=== PATIENT | male | born 1990 | race Caucasian/White ===

== ENCOUNTER 2021-11-30 09:53 | Inpatient (IN) ==
[2021-11-30 10:33] LABS: Basophils # 0.1 K/mcL (0.0-0.2); Eosinophils # 0.3 K/mcL (0.0-0.6); Eosinophils % 5.3 %; Hemoglobin 13.3 g/dL (12.9-16.9); Immature Granulocytes % 0.2 % (0-4); Lymphocytes # 1.4 K/mcL (0.6-4.6); Lymphocytes % 29.2 %; Mean Corpuscular HGB Conc 33.3 g/dL (31.6-35.5); Mean Corpuscular Hemoglobin 31.6 pg (28.0-33.3); Monocytes # 0.6 K/mcL (0.0-1.3); Monocytes % 12.9 %; Neutrophils # 2.5 K/mcL (1.6-8.9); Platelet Count 210 K/mcL (140-400); Red Blood Count 4.21 M/mcL (4.19-5.50); Red Cell Distribution Width 12.3 % (11.5-14.5); Segmented Neutrophils % 51.4 %; White Blood Count 4.9 K/mcL (4.3-11.1)
[2021-11-30 10:53] LABS: Calcium 8.5 mg/dL (8.6-10.3); Potassium 4.1 mEq/L (3.5-5.1)
[2021-11-30] MEDS ORDERED: 0.9 % Sodium Chloride 1,000 ML IV ONE (11:15)
[2021-11-30 12:23] LABS: Influenza A PCR Negative (Negative); Influenza B PCR Negative (Negative); Resp. Syncytial Virus PCR Negative (Negative)
[2021-11-30 13:09] LABS: SARS-CoV-2 by PCR (In House) Negative (Negative)
[2021-11-30] MEDS ORDERED: Melatonin 3 MG TABLET PO PRN (14:19)
[2021-11-30] MEDS ORDERED: Naloxone 0.4 MG/ML INJ IVP PRN (14:19)
[2021-11-30] MEDS ORDERED: Ondansetron 4 MG/2 ML VIAL IVP PRN (14:19)
[2021-11-30] MEDS ORDERED: Ringers Solution, Lactated 1,000 ML IVC SCH (14:30)
[2021-11-30] MEDS ORDERED: Azithromycin 500 MG in 0.9 % Sodium Chloride 250 ML IVPB ONE (15:00)
[2021-11-30] MEDS: 0.9 % Sodium Chloride 1,000 ML IVC SCH (15:13)
[2021-11-30] MEDS: cefTRIAXone 1,000 MG in 0.9 % Sodium Chloride Mini Bag 100 ML IVPB SCH (15:14)
[2021-11-30 15:37] LABS: INR 1.3; Prothrombin Time 14.3 Seconds (9.4-12.1)
[2021-11-30 15:49] LABS: Amphetamine Screen,Urine Negative ng/mL (Cutoff=1000); Barbiturate Screen,Urine Negative ng/mL (Cutoff=200); Benzodiazepines Screen,Urine Negative ng/mL (Cutoff=200); Cannabinoid Screen,Urine Negative ng/mL (Cutoff = 50); Cocaine Screen,Urine Negative ng/mL (Cutoff= 300); Opiate Screen,Urine Negative ng/mL (Cutoff=300); Phencyclidine Screen,Urine Negative ng/mL (Cutoff=25)
[2021-11-30 15:53] LABS: Bilirubin,Urine Negative (Negative); Blood,Urine Large (Negative); Clarity,Urine Clear (Clear); Color,Urine Yellow (Yellow); Glucose,Urine (UA) Normal (Normal); Ketones,Urine Negative (Negative); Leukocyte Esterase,Urine Negative (Negative); Mucus,Urine Few per lpf (None-Few); Nitrite,Urine Negative (Negative); Protein,Urine >=300 mg/dL (Neg-Trace); RBC,Urine 15-30 per hpf (0-3); Specific Gravity,Urine 1.026 (1.010-1.025); Squamous Epithelial Cell,Urine Few per hpf (None-Few); Urobilinogen,Urine Normal (Normal)
[2021-11-30 15:58] LABS: Adenovirus Not Detected (Not Detect); Bordetella Pertussis Not Detected (Not Detect); Chlamydophila pneumoniae Not Detected (Not Detect); Coronavirus 229E Not Detected (Not Detect); Coronavirus HKU1 Not Detected (Not Detect); Coronavirus NL63 Not Detected (Not Detect); Coronavirus OC43 Not Detected (Not Detect); Human Metapneumovirus Not Detected (Not Detect); Human Rhinovirus/Enterovirus Not Detected (Not Detect); Influenza A Subtype 2009 H1 Not Detected (Not Detect); Influenza B Not Detected (Not Detect); Mycoplasma pneumoniae Not Detected (Not Detect); Parainfluenza Virus 1 Not Detected (Not Detect); Parainfluenza Virus 2 Not Detected (Not Detect); Parainfluenza Virus 3 Not Detected (Not Detect); Parainfluenza Virus 4 Not Detected (Not Detect); Respiratory Syncytial Virus Not Detected (Not Detect); SARS-CoV-2 Not Detected (Not Detect)
[2021-11-30] MEDS: Nicotine 7 MG PATCH.TD24 TD PRN (16:47)
[2021-11-30] MEDS: Benzonatate 100 MG CAPSULE PO PRN (16:47)
[2021-11-30] MEDS ORDERED: GuaiFENesin Liq 200 MG/10 ML UDC PO PRN (20:21)
[2021-12-01] MEDS: 0.9 % Sodium Chloride 1,000 ML IVC SCH (02:59)
[2021-12-01 06:07] LABS: Basophils # 0.1 K/mcL (0.0-0.2); Basophils % 0.9 %; Eosinophils # 0.2 K/mcL (0.0-0.6); Eosinophils % 3.2 %; Hematocrit 34.8 % (37.5-50.1); Immature Granulocytes % 0.2 % (0-4); Lymphocytes # 1.5 K/mcL (0.6-4.6); Lymphocytes % 25.6 %; Mean Corpuscular HGB Conc 33.3 g/dL (31.6-35.5); Mean Corpuscular Hemoglobin 31.7 pg (28.0-33.3); Mean Corpuscular Volume 95.1 fL (83.0-100.0); Mean Platelet Volume 10.2 fL (9.4-12.4); Monocytes # 0.7 K/mcL (0.0-1.3); Monocytes % 12.2 %; Neutrophils # 3.3 K/mcL (1.6-8.9); Platelet Count 207 K/mcL (140-400); Red Blood Count 3.66 M/mcL (4.19-5.50); Red Cell Distribution Width 12.4 % (11.5-14.5); Segmented Neutrophils % 57.9 %; White Blood Count 5.7 K/mcL (4.3-11.1)
[2021-12-01 06:08] LABS: Hemoglobin 11.6 g/dL (12.9-16.9)
[2021-12-01 06:14] LABS: INR 1.4; Prothrombin Time 15.1 Seconds (9.4-12.1)
[2021-12-01 06:28] LABS: Calcium 7.7 mg/dL (8.6-10.3); Magnesium 2.2 mg/dL (1.6-2.6); Phosphorous 3.3 mg/dL (2.7-4.5)
[2021-12-01] MEDS: Acetaminophen 325 MG TABLET PO PRN (07:13)
[2021-12-01 13:19] LABS: Albumin 3.5 g/dL (3.5-5.7); Albumin/Globulin Ratio 0.9 (1.1-2.2); Bilirubin,Direct 0.2 mg/dL (0.0-0.2); Bilirubin,Indirect 0.5 mg/dL (0.0-1.0); Bilirubin,Total 0.7 mg/dL (0.3-1.0); Globulin 3.9 g/dL (2.4-3.5); Total Protein 7.4 g/dL (6.4-8.9)
[2021-12-01 13:22] LABS: Complement C3 < 15 mg/dL (87-200)
[2021-12-01] MEDS: cefTRIAXone 1,000 MG in 0.9 % Sodium Chloride Mini Bag 100 ML IVPB SCH (14:15)
[2021-12-01 18:52] LABS: Protein/Creatinine Ratio,Urine 1.14 mg/mg (0.00-0.20); Sodium, Urine 14.1 mEq/L
[2021-12-02 02:02] LABS: Hematocrit 34.9 % (37.5-50.1); Hemoglobin 11.8 g/dL (12.9-16.9); Mean Corpuscular HGB Conc 33.8 g/dL (31.6-35.5); Mean Corpuscular Hemoglobin 31.9 pg (28.0-33.3); Mean Corpuscular Volume 94.3 fL (83.0-100.0); Mean Platelet Volume 10.4 fL (9.4-12.4); Platelet Count 214 K/mcL (140-400); Red Cell Distribution Width 12.1 % (11.5-14.5); White Blood Count 6.7 K/mcL (4.3-11.1)
[2021-12-02 02:24] LABS: Albumin 3.1 g/dL (3.5-5.7); Albumin/Globulin Ratio 0.9 (1.1-2.2); Bilirubin,Direct 0.2 mg/dL (0.0-0.2); Bilirubin,Indirect 0.4 mg/dL (0.0-1.0); Bilirubin,Total 0.6 mg/dL (0.3-1.0); Globulin 3.5 g/dL (2.4-3.5); Potassium 4.8 mEq/L (3.5-5.1); Total Protein 6.6 g/dL (6.4-8.9)
[2021-12-02] MEDS: amLODIPine 5 MG TABLET PO SCH (07:51)
[2021-12-02] MEDS: Acetaminophen 325 MG TABLET PO PRN (07:51)
[2021-12-02] MEDS: Nicotine 7 MG PATCH.TD24 TD PRN (07:51)
[2021-12-02 14:29] LABS: Uric Acid 10.8 mg/dL (2.3-7.6)
[2021-12-02] MEDS: cefTRIAXone 1,000 MG in 0.9 % Sodium Chloride Mini Bag 100 ML IVPB SCH (14:34)
[2021-12-02] MEDS: carvediloL 6.25 MG TABLET PO SCH (16:24)
[2021-12-03 01:48] LABS: Basophils % 0.7 %; Eosinophils # 0.3 K/mcL (0.0-0.6); Eosinophils % 4.9 %; Hematocrit 34.4 % (37.5-50.1); Hemoglobin 11.5 g/dL (12.9-16.9); Immature Granulocytes % 0.2 % (0-4); Lymphocytes # 1.6 K/mcL (0.6-4.6); Mean Corpuscular HGB Conc 33.4 g/dL (31.6-35.5); Mean Corpuscular Hemoglobin 31.5 pg (28.0-33.3); Mean Corpuscular Volume 94.2 fL (83.0-100.0); Mean Platelet Volume 9.9 fL (9.4-12.4); Monocytes # 0.7 K/mcL (0.0-1.3); Monocytes % 12.6 %; Neutrophils # 3.1 K/mcL (1.6-8.9); Platelet Count 227 K/mcL (140-400); Red Blood Count 3.65 M/mcL (4.19-5.50); Red Cell Distribution Width 12.2 % (11.5-14.5); Segmented Neutrophils % 53.6 %; White Blood Count 5.9 K/mcL (4.3-11.1)
[2021-12-03 02:04] LABS: Albumin 3.1 g/dL (3.5-5.7); Albumin/Globulin Ratio 0.9 (1.1-2.2); Bilirubin,Total 0.6 mg/dL (0.3-1.0); Calcium 8.4 mg/dL (8.6-10.3); Globulin 3.5 g/dL (2.4-3.5); Potassium 4.7 mEq/L (3.5-5.1); Total Protein 6.6 g/dL (6.4-8.9)
[2021-12-03] MEDS: Benzonatate 100 MG CAPSULE PO PRN (02:56)
[2021-12-03] MEDS: carvediloL 6.25 MG TABLET PO SCH ×2 (07:47→15:44)
[2021-12-03] MEDS: Acetaminophen 325 MG TABLET PO PRN (07:47)
[2021-12-03] MEDS: amLODIPine 5 MG TABLET PO SCH (07:47)
[2021-12-03] MEDS ORDERED: Furosemide 20 MG/2 ML VIAL IVP ONE (07:48)
[2021-12-03] MEDS ORDERED: GuaiFENesin/Codeine Oral Soln 5 ML UDC PO PRN (10:49)
[2021-12-03] MEDS: cefTRIAXone 1,000 MG in 0.9 % Sodium Chloride Mini Bag 100 ML IVPB SCH (15:00)
[2021-12-04] MEDS: amLODIPine 5 MG TABLET PO SCH (08:06)
[2021-12-04] MEDS: carvediloL 6.25 MG TABLET PO SCH (08:07)
[2021-12-04 08:14] LABS: Calcium 8.7 mg/dL (8.6-10.3); Potassium 4.7 mEq/L (3.5-5.1)
[2021-12-04 10:13] VITALS: BP 160/95; PULSE 73; TEMP 97.9; O2SAT 94
[2021-12-05 02:45] LABS: ANA HEp-2 IgG IFA DETECTED (<1:80); Anti Nuclear Ab Pattern SPECKLED
[2021-12-05 10:23] LABS: GBM IgG Multiplex Bead Assay 0 AU/mL (0-19); Glomerular Basement Memb IgG NEGATIVE (Negative)
[2021-12-05 18:11] LABS: ANCA IFA Titer <1:20 (<1:20)
[2021-12-06 10:56] LABS: ANCA IFA Pattern NONE DETECTED (None Detected); Serine Protease-3 Antibody 2 AU/mL (0-19)
== END 2021-12-04 14:50 | disposition home or self-care (01) | DRG 193 ==
LOC: 3ANU 09:53 → EMEROOARM 09:53 → 3ANU 14:12
PROVIDERS: ADMIT Hospitalist; ATTEND Hospitalist